=== PATIENT | male | born 1945 | race Caucasian/White ===

== ENCOUNTER 2021-01-25 18:02 | Emergency (ER) | payer MEDICARE, SELFPAY ==
[2021-01-25 18:21] VITALS: BP 194/99; PULSE 84; RESP 18; TEMP 36.7; O2SAT 97; BMI 24.3
[2021-01-25 18:47] LABS: Basophils % 0.4 %; Eosinophils # 0.1 10^3/uL (0.0-0.8); Eosinophils % 0.7 %; Hemoglobin 14.3 g/dL (11.7-16.6); Lymphocytes # 1.3 10^3/uL (0.8-4.8); Lymphocytes % 13.4 %; Mean Corpuscular HGB Conc 33.3 g/dL (30.0-36.0); Mean Corpuscular Hemoglobin 29.1 pg (28.0-34.0); Mean Corpuscular Volume 87.6 fL (80-94); Mean Platelet Volume 9.6 fL (7.4-10.4); Monocytes % 9.8 %; Neutrophils # 7.42 10^3/uL (1.8-7.7); Neutrophils % 75.3 %; Nucleated Red Blood Cells % 0 %; Platelet Count 262 10^3/cmm (130-400); Red Blood Count 4.91 10^6/uL (4.1-5.3); Red Cell Distribution Width 13.7 % (12.1-15.1); White Blood Count 9.9 10^3/uL (4.0-10.0)
[2021-01-25 19:03] LABS: Alanine Aminotransferase 22 U/L (0-41); Albumin Level 4.1 g/dL (3.5-5.2); Alkaline Phosphatase 81 IU/L (40-130); Anion Gap 17.4 (5-19); Aspartate Amino Transferase 24 U/L (0-40); Blood Urea Nitrogen 17 mg/dL (8-23); Calcium 9.2 mg/dL (8.5-10.5); Carbon Dioxide 26 mmol/L (22-29); Chloride 100 mmol/L (98-107); Glucose 161 mg/dL (65-115); Lipase 20 U/L (13-60); Osmolality Calculated 295 mOsm/kg (285-295); Potassium 3.4 mmol/L (3.5-5.1); Sodium 140 mmol/L (136-145); Total Bilirubin 0.4 mg/dL (0.15-1.2); Total Protein 7.1 g/dL (6.6-8.7)
--- NOTE | 2021-01-25 19:04 | W.ED.MALEGU ---
HPI - Male Genitourinary General: Chief complaint: Urogenital-Male Stated complaint: ABD Pain Time Seen by Provider: 01/25/21 19:04 History of Present Illness: HPI Narrative: Patient is a 75-year-old male comes to the ED with abdominal pain and urinary retention. Patient says he has had this problem once before. He woke up this morning and was unable to urinate. Throughout the day his bladder was getting more full and he was starting to get pain in his lower abdomen and over his bladder. Denies any other symptoms such as nausea/vomiting, fever, chills, dysuria or hematuria. Associated symptoms: Deny dysuria, hematuria, nausea or vomiting Review of Systems Const: Denies: fever(s), chills or fatigue Eyes: Denies: change in vision or eye discomfort ENMT: Denies: throat pain, odynophagia, nasal discharge or nasal congestion Card: Denies: chest pain, palpitations, edema, swelling of feet/ankles, dyspnea on exertion or orthopnea Resp: Denies: dyspnea, productive cough or non-productive cough GI: Reports: abdominal pain (Lower abdomen/bladder pain); Denies: nausea, vomiting, diarrhea, constipation or hematochezia : Reports: oliguria (Could not urinate); Denies: flank pain, difficulty urinating, dysuria or hematuria Musc: Denies: neck pain, back pain or extremity swelling Skin/Breast: Denies: rash or new lesions Neuro: Denies: headache(s), numbness in extremities or weakness in extremities Physical Exam Narrative: EXAM NARRATIVE: Upon my initial exam of patient he had already had Burns catheter placed. He appears now in no pain or discomfort and has no abdominal or bladder tenderness. Const: COMMON NORMALS: no acute distress, patient oriented x3, healthy appearing and alert GENERAL APPEARANCE: cooperative and comfortable HENMT: COMMON NORMALS: normocephalic HEAD & SCALP: normocephalic MOUTH: Normal oral and palatal mucosa present THROAT: posterior oropharynx normal and uvula midline Neck/C-Spine: COMMON NORMALS: supple GENERAL: Yes normal visual inspection Resp: COMMON NORMALS: normal respiratory effort, No retractions, No use of accessory muscles and clear to auscultation bilaterally AUSCULTATION: clear to auscultation bilaterally Cardio: COMMON NORMALS: regular rate, regular rhythm, S1 normal heart sound present, S2 normal heart sound present, No gallops present (Cardio), No clicks present (Cardio), No murmurs present (Cardio) and Peripheral pulses 2+ throughout RATE: regular rate RHYTHM: regular rhythm HEART SOUNDS: S1 normal heart sound present and S2 normal heart sound present PERIPHERAL PULSES: Peripheral pulses 2+ throughout GI: COMMON NORMALS: Normal to inspection, nondistended, normoactive bowel sounds present, Soft to palpation, non-tender and no masses PALPATION: Yes Soft to palpation : COMMON NORMALS: Yes no CVA tenderness BLADDER/KIDNEY EXAM: Yes no CVA tenderness Back/Pelvis: COMMON NORMALS: no CVA tenderness Extremity: COMMON NORMALS: normal to inspection Neuro: COMMON NORMALS: patient oriented x3 and moves all extremities SENSORIUM/ORIENTATION: Yes alert Skin: GENERAL SKIN EXAM: dry skin Course ED course: Patient says that once Burns catheter was in place and urine started draining out he felt immediate relief. Since placement of Burns catheter he says he is no more abdominal/bladder pain or discomfort. Vital Signs: Vital signs: Vital Signs Temperature 98.1 F 01/25/21 18:21 Pulse Rate 88 01/25/21 20:17 Respiratory Rate 18 01/25/21 20:17 Blood Pressure 132/87 01/25/21 20:17 Pulse Oximetry 96 01/25/21 20:17 MDM - Male MDM Narrative: Medical decision making narrative: Patient is a 75-year-old male comes to the ED with acute urinary retention. Burns catheter was placed and patient symptoms immediately resolved. Patient says he has had an episode of urinary retention in the past. Denies any other symptoms. Vital stable. Exam benign. CBC and CMP were unremarkable. Urinalysis showed no signs of any infection. Patient was diagnosed with acute urinary retention and discharged home with a Burns catheter. I placed order with case management for patient to be referred to Dr. Wilks for further evaluation. Return to ED precautions given. I told patient that case management will be contacting him in the next several days set up an appoint with Dr. Wilks. He was instructed on how to care for Burns catheter while at home. Patient understood and agree with plan. Lab Data: Attestation: I reviewed the patient's lab results. Labs: Lab Results 07/27/21 07/27/21 07/27/21 Range/Units 18:12 18:43 18:43 WBC 9.9 (4.0-10.0) 10^3/ uL RBC 4.91 (4.1-5.3) 10^6/u L Hgb 14.3 (11.7-16.6) g/dL Hct 43.0 (42.0-52.0) % MCV 87.6 (80-94) fL MCH 29.1 (28.0-34.0) pg MCHC 33.3 (30.0-36.0) g/dL RDW 13.7 (12.1-15.1) % Plt Count 262 (130-400) 10^3/c mm MPV 9.6 (7.4-10.4) fL Neut % (Auto) 75.3 % Lymph % (Auto) 13.4 % Walton % (Auto) 9.8 % Eos % (Auto) 0.7 % Baso % (Auto) 0.4 % Neut # (Auto) 7.42 (1.8-7.7) 10^3/u L Lymph # (Auto) 1.3 (0.8-4.8) 10^3/u L Walton # (Auto) 1.0 H (0.2-0.9) 10^3/u L Eos # (Auto) 0.1 (0.0-0.8) 10^3/u L Baso # (Auto) 0.0 (0.0-0.1) 10^3/u L Nucleated RBC % (a uto) 0 % Nucleated RBCs # 0.0 /100WBC Sodium 140 (136-145) mmol/L Potassium 3.4 L (3.5-5.1) mmol/L Chloride 100 (98-107) mmol/L Carbon Dioxide 26 (22-29) mmol/L Anion Gap 17.4 (5-19) BUN 17 (8-23) mg/dL Creatinine 0.9 (0.7-1.2) mg/dL GFR Calculation Not Reportable Glucose 161 H (65-115) mg/dL Calculated Osmolal ity 295 (285-295) mOsm/k g Calcium 9.2 (8.5-10.5) mg/dL Total Bilirubin 0.4 (0.15-1.2) mg/dL AST 24 (0-40) U/L ALT 22 (0-41) U/L Alkaline Phosphata se 81 (40-130) IU/L Total Protein 7.1 (6.6-8.7) g/dL Albumin 4.1 (3.5-5.2) g/dL Globulin 3.0 (1.3-4.6) g/dL Lipase 20 (13-60) U/L Urine Color Yellow (Yellow) Urine Appearance Clear (CLEAR) Urine pH 5 (5-7) Ur Specific Gravit y 1.010 (1.005-1.030) Urine Protein Neg (Negative) Urine Glucose (UA) Norm (Normal) Urine Ketones Negative (Negative) Urine Blood 2+ H (Negative) Urine Nitrate Negative (Negative) Urine Bilirubin Neg (Negative) Urine Urobilinogen Norm (Negative) mg/dL Ur Leukocyte Bryanna ase Negative (Negative) Urine RBC 0-4 H (0-2) /hpf Urine WBC None (0-5) /hpf Ur Squamous Epith Cells None (0-5) /hpf Amorphous Sediment Not Reportable Urine Bacteria None (NONE) /hpf Discharge Plan Discharge Patient Disposition: Home Clinical Impression: Acute retention of urine Condition: Stable Discharge Orders: Discharge ED (Routine); Ordered 01/25/21 Ordered By: Remington Dill Referrals: Anish Lawson MD [Primary Care Provider] - Discharge Diet: Regular Discharge Activity: Increase activity as tolerated Patient Instructions: Bruns Catheter Care, Urinary Retention in Men (ED) Activity Restrictions/Additional Instructions: Follow-up with medical provider as directed. Case management will be contacting you in the next several days to set up an appointment with Dr. Wilks the urologist. Continue taking all home medications as prescribed. Return to the ER or your medical provider if condition worsens. Please read and understand discharge instructions and asked nurse if you have any questions on Burns catheter care. Thank you for choosing [facility] for your healthcare needs today. Please realize this is an emergency room and that we are providing you with a medical screening exam and this may not be complete and all inclusive of all the testing and or work up that you may need to determine your ailment or severity of your illness. It is very important that you follow up as instructed or that you return to the Emergency Department should you have concerns or if your condition changes or worsens in any way. Coding Level of Care Code ED Community Support Associate for Magdy Fwd Exam Comprehensive
[2021-01-25 19:41] LABS: Add Urine Microscopic? YES; Bilirubin Urine Neg (Negative); Blood Urine 2+ (Negative); Glucose Urine UA Norm (Normal); Ketones Urine Negative (Negative); Leukocyte Esterase Urine Negative (Negative); Nitrate Urine Negative (Negative); Protein Urine Neg (Negative); Urine Appearance Clear (CLEAR); Urine Color Yellow (Yellow); Urobilinogen Urine Norm (Negative); pH Urine 5 (5-7)
[2021-01-25 19:42] LABS: RBC Urine 0-4 /hpf (0-2)
[2021-01-25 20:17] VITALS: BP 132/87; PULSE 88; RESP 18; O2SAT 96
--- NOTE | 2021-01-26 10:11 | DCPLANNER ---
cardroom manager had message to schedule a follow up appointment for patient with Dr. Wilks. cardroom manager called the office of Dr. Wilks spoke with Esau, gave clinic patients information. cardroom manager was told that patients information would be printed and reviewed. Clinic will call patient with appointment information.
--- NOTE | 2021-02-01 13:49 | DCPLANNER ---
Patient has a follow up appointment scheduled for Tuesday, February 06 at 9:[address] Wilks. Clinic will call patient with appointment information.
--- NOTE | 2021-02-18 12:39 | DCPLANNER ---
Patient had an appointment scheduled for 02.11.[address] Wilks - patient did attend appointment.
== END 2021-01-25 20:18 | disposition home or self-care (01) ==
PROVIDERS: Emergency Medicine; Emergency Provider Physician Assistant; PCP Family Medicine
DX: R33.9 Retention of urine, unspecified (principal)
CPT/HCPCS: 51702; 80053; 81001; 83690; 85025; 99283

== ENCOUNTER → 2021-03-24 15:17 | Outpatient (BNVA) | payer MEDICARE, SELFPAY | PROVIDERS: PCP Family Medicine; Visit Provider Nurse Practitioner Family | DX: N40.1 Benign prostatic hyperplasia with lower urinary tract symptoms (principal); R82.81 Pyuria | CPT/HCPCS: 81003; 87077; 87086; 87184 ==

== ENCOUNTER → 2021-04-19 16:06 | Outpatient (BNVA) | payer MEDICARE, SELFPAY | PROVIDERS: PCP Family Medicine; Visit Provider Urology | DX: N40.1 Benign prostatic hyperplasia with lower urinary tract symptoms (principal); R82.71 Bacteriuria | CPT/HCPCS: 81003; 87077; 87086; 87184 ==

== ENCOUNTER → 2021-10-18 14:58 | Outpatient (BNVA) | payer MEDICARE, SELFPAY | PROVIDERS: PCP Family Medicine; Visit Provider Urology | DX: N40.1 Benign prostatic hyperplasia with lower urinary tract symptoms (principal); R33.9 Retention of urine, unspecified | CPT/HCPCS: 81003 ==

== ENCOUNTER → 2022-10-12 13:03 | Outpatient (BNVA) | payer MEDICARE, SELFPAY | PROVIDERS: PCP Family Medicine; Visit Provider Urology | DX: N40.1 Benign prostatic hyperplasia with lower urinary tract symptoms (principal); R33.9 Retention of urine, unspecified | CPT/HCPCS: 51741; 51798; 99213 ==

== ENCOUNTER → 2023-02-27 10:26 | Outpatient (BNVA) | payer MEDICARE, SELFPAY | PROVIDERS: PCP Family Medicine; Referring Provider Family Medicine; Visit Provider Nurse Practitioner Family | DX: D22.5 Melanocytic nevi of trunk; L81.4 Other melanin hyperpigmentation; L57.8 Other skin changes due to chronic exposure to nonionizing radiation; L57.0 Actinic keratosis; Z85.828 Personal history of other malignant neoplasm of skin; L72.0 Epidermal cyst; L30.8 Other specified dermatitis; D36.14 Benign neoplasm of peripheral nerves and autonomic nervous system of thorax; D17.21 Benign lipomatous neoplasm of skin and subcutaneous tissue of right arm | CPT/HCPCS: 17000; 17003; 99203 ==

== ENCOUNTER → 2023-03-07 10:23 | Outpatient (BNVA) | payer MEDICARE, SELFPAY | PROVIDERS: PCP Family Medicine; Visit Provider Dermatology | DX: L08.9 Local infection of the skin and subcutaneous tissue, unspecified (principal) | CPT/HCPCS: 11104; 11105; 99214 ==

== ENCOUNTER → 2023-03-12 14:36 | Outpatient (BNVA) | payer MEDICARE, SELFPAY | PROVIDERS: PCP Family Medicine; Visit Provider Dermatology | DX: B02.7 Disseminated zoster (principal); Z48.02 Encounter for removal of sutures | CPT/HCPCS: 99214 ==

== ENCOUNTER 2023-03-17 10:03 | Inpatient (IN) | payer MEDICARE, SELFPAY ==
[2023-03-17 10:18] VITALS: BP 161/97; PULSE 86; RESP 18; TEMP 36.6; O2SAT 99; BMI 22.1
[2023-03-17 10:39] VITALS: BP 161/97; PULSE 86; RESP 18; O2SAT 99
--- NOTE | 2023-03-17 10:44 | ED_ITS ---
HPI - Skin/Abscess/Foreign Bdy General: Chief complaint: Skin/Abscess/Foreign Body Stated complaint: shingles Time Seen by Provider: 03/17/23 10:20 History of Present Illness: Mr. Ewing is a 77-year-old man that presents to the emergency department with complaints of pain that radiates into the left upper extremity. Onset of the symptoms last night. Patient has a 3-week history of extensive/severe shingles to the left anterior chest, shoulder, trapezius that extends into the left paraspinous muscles of the neck that do not cross midline. Pain radiates from midline neck into the upper extremity and into the hand. The pain in the neck and shoulder are described as cramping and the pain into the forearm and hand is more like deep aching . Patient states when he starts to rotate his head he feels the cramp tightening which pulls his head towards his left shoulder. This causes unsteady gait and dizziness. Patient has been taking his prescribed valacyclovir and cephalexin. He has mupirocin cream that he is using as well. He has been managing his pain at home with Tylenol and ibuprofen Patient denies chest pain, shortness of breath, fevers, chills Associated symptoms: Deny chills, fever(s), nausea or vomiting Review of Systems General: Reports: 10 or more systems reviewed and unremarkable except in HPI and below Const: Denies: fever(s), chills, change in appetite, change in weight, fatigue or malaise Eyes: Denies: change in vision, eye discomfort, eye discharge or eye redness ENMT: Denies: throat pain, enlarged tonsils, odynophagia, hoarseness, ear or mastoid pain, ear discharge, change in hearing, tinnitus, nasal discharge, nasal congestion, post nasal drip or sinus pain Card: Denies: chest pain, palpitations, irregular heart rhythm, edema, dyspnea on exertion, orthopnea or leg pain with exertion Resp: Denies: dyspnea, productive cough, non-productive cough, wheezing, stridor or chest congestion GI: Denies: abdominal pain, nausea, vomiting, dysphagia, diarrhea, constipation, bloating, GI cramping or hematochezia : Denies: flank pain, dysuria, urinary frequency, urinary urgency, urinary hesitancy, oliguria or hematuria Musc: Reports: neck pain, limited range of motion and muscle cramps; Denies: back pain, extremity pain, joint pain, joint swelling, joint redness, joint warmth or muscle weakness Skin/Breast: Reports: rash, erythema, skin tenderness, skin swelling, new lesions and changing lesions; Denies: pruritus or photosensitivity Neuro: Denies: headache(s), numbness in extremities, weakness in extremities, sensory changes, lack of coordination, difficulty walking, frequent falls, dizziness, confusion, Slurred speech present, difficulty communicating thoughts, seizure-like activity or involuntary movements Endo: Denies: polyuria, polydipsia or tired all the time Jose Alfredo/Lymph: Denies: easy bruising or easy bleeding PFSH ED PFSH: Medical History (Updated 03/17/23 @ 12:36 by MARIA Luciano) History of lymphoma Urinary retention Surgical History H/O left inguinal hernia repair H/O lymph node biopsy Family History Mother , AT AGE 86 Alzheimer disease Father , AT AGE 74 Arthritis Social History Smoking and tobacco status: never smoked Alcohol intake: never Marital status: Current occupational status: retired Physical Exam Const: COMMON NORMALS: no acute distress, patient oriented x3 and alert GENERAL APPEARANCE: cooperative ORIENTATION/CONSCIOUSNESS: Yes awake, Yes val ented to person, Yes oriented to place and Yes oriented to time HENMT: COMMON NORMALS: normocephalic and atraumatic HEAD & SCALP: normocephalic and atraumatic FACE & SINUS: normal facial exam MOUTH: Normal oral and palatal mucosa present THROAT: posterior oropharynx normal Eye: COMMON NORMALS: Equal, round and reactive pupils present, EOMs intact bilaterally, conjunctivae normal and no scleral icterus CONJUNCTIVA: Yes conjunctivae normal PUPIL: Yes Equal, round and reactive pupils present Neck/C-Spine: COMMON NORMALS: full ROM GENERAL: Yes normal visual inspection Lymph: LYMPHATIC: no lymphadenopathy noted Chest: COMMONS NORMALS: normal inspection of the chest Breast/axilla inspection: Yes no chest deformity, asymmetry, normal contours, no nodules, masses, tenderness Resp: COMMON NORMALS: normal respiratory effort, No retractions, No use of accessory muscles and clear to auscultation bilaterally EFFORT & INSPECTION: Yes able to speak in complete sentences and Yes symmetric chest movement AUSCULTATION: clear to auscultation bilaterally Cardio: COMMON NORMALS: regular rate, regular rhythm and Peripheral pulses 2+ throughout RATE: regular rate RHYTHM: regular rhythm PERIPHERAL PULSES: Peripheral pulses 2+ throughout GI: COMMON NORMALS: Normal to inspection, nondistended, normoactive bowel sounds present, Soft to palpation, non-tender and No hepatosplenomegaly present INSPECTION: Yes normal to inspection AUSCULTATION: Yes normoactive bowel sounds PALPATION: Yes Soft to palpation and Yes No hepatosplenomegaly present RECTAL EXAM: Yes deferred Extremity: COMMON NORMALS: normal to inspection GENERAL: Yes normal exam except as noted Neuro: COMMON NORMALS: patient oriented x3 SENSORIUM/ORIENTATION: Yes alert, Yes oriented to person, Yes oriented to place and Yes oriented to time CRANIAL NERVES: Yes CN normal except as noted Psych: COMMON NORMALS: mental status grossly normal, Normal thought process present, cooperative, activity/motor behavior normal, denies homicidal ideation and denies suicidal ideation THOUGHT PROCESS: Normal thought process present Skin: COMMON NORMALS: no rashes or lesions noted, no wounds and turgor normal GENERAL SKIN EXAM: no rashes or lesions noted and turgor normal Course Vital Signs: Vital signs: Vital Signs Temperature 97.9 F 03/17/23 10:18 Pulse Rate 75 03/17/23 11:17 Respiratory Rate 18 03/17/23 11:17 Blood Pressure 142/82 03/17/23 11:17 Pulse Oximetry 97 03/17/23 11:17 Oxygen Delivery Me thod Room Air 03/17/23 11:17 MDM - Skin/Abscess/Foreign Bdy Medicial Decision Making Was evaluated in the emergency department today for development of neck pain with radiation into the left upper extremity. Currently being treated for a pretty severe case of shingles Diagnosis includes systemic infection, sepsis, torticollis, cervical instability, foraminal stenosis, central canal stenosis. Patient underwent CBC and CMP initially; laboratory evaluation revealed no leukocytosis, anemias, electrolyte abnormalities, liver or renal dysfunction. Patient also had complaints of radicular type symptoms. I ended up ordering a CT head and cervical spine. CT cervical spine reveals multilevel, multifactorial cervical spine degenerative changes with severe foraminal stenosis, central canal stenosis, spondylolisthesis, and reversal of cervical lordosis. Patient had spoken with his corn picker earlier in the week [place]: They had re commended possible admission if his symptomatology worsened. After initial laboratory evaluation and diagnostics, I did speak with Dr. Gibson at 1145 regarding possible admission. Recommendations for ESR, CRP, procalcitonin and radiographic. Dr. Farley did come down and see the patient and ultimately admitted him. Patient updated. I did review diagnostic imaging with the patient who has clear ly stated he has no interest in following up on the cervical spine changes. I have encouraged him to see his PCP and discuss further. All questions answered Lab Data 03/17/23 10:50 03/17/23 10:50 Radiology Impressions Cervical Spine CT 03/17/23 10:50 IMPRESSION: 1. Multilevel, multifactorial cervical spine degenerative changes with severe right osseous neural foraminal narrowing at C2-C3, severe left osseous neural foraminal narrowing at C5-C6, and moderate to severe left osseous neural foraminal narrowing at C6-C7. Moderate spinal canal narrowing at C5-C6 greater than C6-C7. Additional sites of spinal canal and neural foraminal narrowing detailed above. 2. Reversal of the natural cervical lordosis, 4 mm grade 1 anterolisthesis of C2 on C3 in the setting of hypertrophic facet arthrosis. Head CT 03/17/23 10:50 IMPRESSION: No acute intracranial findings. Laboratory Results WBC 9.86 10^3/uL (3.29-11.43) 03/17/23 10:50 RBC 4.62 10^6/uL (3.85-5.65) 03/17/23 10:50 Hgb 13.40 g/dL (11.27-16.99) 03/17/23 10:50 Hct 39.7 % (37-53) 03/17/23 10:50 MCV 85.9 fl (82-101) 03/17/23 10:50 MCH 29.0 pg (27-33) 03/17/23 10:50 MCHC 33.8 g/dL (30-55) 03/17/23 10:50 RDW 13.9 % (12.1-15.1) 03/17/23 10:50 Plt Count 450 10^3/cmm (157-399) H 03/17/23 10:50 MPV 8.5 fL (7.4-10.4) 03/17/23 10:50 Neut % (Auto) 68.7 % 03/17/23 10:50 Lymph % (Auto) 13.6 % 03/17/23 10:50 [place] % (Auto) 13.1 % 03/17/23 10:50 Eos % (Auto) 1.6 % 03/17/23 10:50 Baso % (Auto) 0.4 % 03/17/23 10:50 Neut # (Auto) 6.77 10^3/uL (1.8-7.7) 03/17/23 10:50 Lymph # (Auto) 1.3 10^3/uL (0.8-4.8) 03/17/23 10:50 Summit # (Auto) 1.3 10^3/uL (0.2-0.9) H 03/17/23 10:50 Eos # (Auto) 0.2 10^3/uL (0.0-0.8) 03/17/23 10:50 Baso # (Auto) 0.0 10^3/uL (0.0-0.1) 03/17/23 10:50 Nucleated RBC % (auto) 0 % 03/17/23 10:50 Nucleated RBCs # 0.0 /100WBC 03/17/23 10:50 Sodium 136 mmol/L (136-145) 03/17/23 10:50 Potassium 3.9 mmol/L (3.5-5.1) 03/17/23 10:50 Chloride 101 mmol/L (98-107) 03/17/23 10:50 Carbon Dioxide 25 mmol/L (22-29) 03/17/23 10:50 Anion Gap 13.9 (5-19) 03/17/23 10:50 BUN 23 mg/dL (8-23) 03/17/23 10:50 Creatinine 0.9 mg/dL (0.7-1.2) 03/17/23 10:50 GFR Calculation Not Reportable 03/17/23 10:50 Glucose 126 mg/dL (65-115) H 03/17/23 10:50 Calculated Osmolality 287 mOsm/kg (285-295) 03/17/23 10:50 Calcium 9.1 mg/dL (8.5-10.5) 03/17/23 10:50 Total Bilirubin 0.3 mg/dL (0.15-1.2) 03/17/23 10:50 AST 18 U/L (0-40) 03/17/23 10:50 ALT 45 U/L (0-41) H 03/17/23 10:50 Alkaline Phosphatase 84 U/L (40-130) 03/17/23 10:50 Total Protein 6.6 g/dL (6.6-8.7) 03/17/23 10:50 Albumin 3.5 g/dL (3.5-5.2) 03/17/23 10:50 Globulin 3.1 g/dL (1.3-4.6) 03/17/23 10:50 Procalcitonin 0.05 ng/mL (0-0.5) 03/17/23 10:50 All radiology interpretation(s) finalized by discharge Discharge Plan Discharge Patient Disposition: Admitted As Inpatient Clinical Impression: Shingles, Cervical spinal stenosis, Spondylolisthesis, 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 Condition: Stable Prescriptions: No Action MSM 1,000 mg capsule 1,000 mg PO BID sildenafil [Viagra] 50 mg tablet 50 mg PO DAILY PRN (Reason: Erectile Dysfunction) Rx Instructions: administer 30 minutes to 4 hours before activity cholecalciferol (vitamin D3) 10 mcg (400 unit) capsule 10 mcg PO DAILY tamsulosin 0.4 mg capsule 0.4 mg PO BID Qty: 180 3RF Valtrex 1 gram Tablet 1,000 mg PO TID Rx Instructions: FOR 7 DAYS (RX FILLED 03/07/23) Keflex 500 mg Capsule 500 mg PO BID Rx Instructions: FOR 7 DAYS (RX FILLED 03/12/23) ibuprofen 200 mg Tablet 200 mg PO Q6H PRN (Reason: Pain) mupirocin 2 % Ointment 1 applic TOPICAL BID Domeboro 952-1,347 mg Powder In Packet 2 packet TOPICAL DAILY glucosamine sulfate 1,000 mg Tablet 1,000 mg PO BID finasteride 5 mg tablet 5 mg PO QAM Referrals: Anish Lawson MD [Primary Care Provider] - Coding Level of Care Code ED Overnight Stocker for g Mirta
--- NOTE | 2023-03-17 10:50 | CTR_ITS ---
PROCEDURE INFORMATION: Exam: CT Head Without Contrast Exam date and time: 03/17/2023 11:25 AM Age: 77 years old Clinical indication: Dizziness TECHNIQUE: Imaging protocol: Computed tomography of the head without contrast. Radiation optimization: All CT scans at this facility use at least one of these dose optimization techniques: automated exposure control; mA and/or kV adjustment per patient size (includes targeted exams where dose is matched to clinical indication); or iterative reconstruction. REPORTING DATA: Count of CT and Cardiac NM exams in prior 12 months: This patient has received 0 known CTs and 0 known cardiac nuclear medicine studies in the 12 months prior to the current study. COMPARISON: No relevant prior studies available. RADIATION DOSE METRICS: Total DLP (mGy-cm): 1489.58 FINDINGS: Brain: Diffuse cerebral atrophy, consistent with patient's age. No hemorrhage. Preserved cavazos-white matter differentiation. Bilateral basal ganglia hypodensities likely represent chronic lacunar infarcts or prominent perivascular spaces. Mild patchy cerebral white matter hypoattenuation likely on the basis of chronic microvascular ischemic change. No mass effect. Intracranial vascular calcifications. Cerebral ventricles: Ventricles are in proportion to the degree of atrophy. Paranasal sinuses: Visualized sinuses are unremarkable. No fluid levels. Mastoid air cells: Visualized mastoid air cells are well aerated. Bones/joints: Unremarkable. No acute fracture. Soft tissues: Unremarkable. CT/CT head wo con* [id number] IMPRESSION: No acute intracranial findings.
--- NOTE | 2023-03-17 10:50 | CTR_ITS ---
PROCEDURE INFORMATION: Exam: CT Cervical Spine Without Contrast Exam date and time: 03/17/2023 11:25 AM Age: 77 years old Clinical indication: Neck pain; Additional info: Pain, radiculopathy TECHNIQUE: Imaging protocol: Computed tomography of the cervical spine without contrast. Radiation optimization: All CT scans at this facility use at least one of these dose optimization techniques: automated exposure control; mA and/or kV adjustment per patient size (includes targeted exams where dose is matched to clinical indication); or iterative reconstruction. REPORTING DATA: Count of CT and Cardiac NM exams in prior 12 months: This patient has received 0 known CTs and 0 known cardiac nuclear medicine studies in the 12 months prior to the current study. COMPARISON: No relevant prior studies available. RADIATION DOSE METRICS: Total DLP (mGy-cm): 567.8 FINDINGS: Bones/joints: No acute fracture. Moderate reversal of the natural cervical lordosis. 4 mm grade 1 anterolisthesis of C2 on C3 in the setting of [id number]-[id number]-left hypertrophic facet arthrosis. Additional less pronounced facet arthrosis throughout the cervical spine. Trace retrolisthesis of C4 on C5. Multilevel, multifactorial cervical spine degenerative changes with intervertebral disc space narrowing, osteophytosis, and uncovertebral spurring greatest at C4-C5 and C5-C6. Severe right osseous neural foraminal narrowing at C2-C3. Moderate right osseous neural foraminal narrowing at C4-C5. Mild spinal canal narrowing at this level. Severe left and moderate right osseous neural foraminal narrowing at C5-C6. Moderate spinal canal narrowing at this level. Moderate to severe left and [id number] right neural foraminal narrowing at C6-C7 with moderate left spinal canal narrowing. Lungs: Lung apices show mild biapical pleural-parenchymal scarring but otherwise clear. Vasculature: Mild systemic atherosclerotic calcification. Soft tissues: Unremarkable. CT/CT cervical spin wo con* [id number] IMPRESSION: 1. Multilevel, multifactorial cervical spine degenerative changes with severe right osseous neural foraminal narrowing at C2-C3, severe left osseous neural foraminal narrowing at C5-C6, and moderate to severe left osseous neural foraminal narrowing at C6-C7. Moderate spinal canal narrowing at C5-C6 greater than C6-C7. Additional sites of spinal canal and neural foraminal narrowing detailed above. 2. Reversal of the natural cervical lordosis, 4 mm grade 1 anterolisthesis of C2 on C3 in the setting of hypertrophic facet arthrosis.
[2023-03-17 11:00] LABS: Basophils % 0.4 %; Eosinophils # 0.2 10^3/uL (0.0-0.8); Eosinophils % 1.6 %; Hematocrit 39.7 % (37-53); Lymphocytes # 1.3 10^3/uL (0.8-4.8); Lymphocytes % 13.6 %; Mean Corpuscular HGB Conc 33.8 g/dL (30-55); Mean Corpuscular Volume 85.9 fl (82-101); Mean Platelet Volume 8.5 fL (7.4-10.4); Monocytes # 1.3 10^3/uL (0.2-0.9); Monocytes % 13.1 %; Neutrophils # 6.77 10^3/uL (1.8-7.7); Neutrophils % 68.7 %; Nucleated Red Blood Cells % 0 %; Platelet Count 450 10^3/cmm (157-399); Red Blood Count 4.62 10^6/uL (3.85-5.65); Red Cell Distribution Width 13.9 % (12.1-15.1); White Blood Count 9.86 10^3/uL (3.29-11.43)
[2023-03-17] MEDS: ketorolac 30 mg/mL INJ 15 MG IVP (11:16)
[2023-03-17 11:17] VITALS: BP 142/82; PULSE 75; RESP 18; O2SAT 97
--- NOTE | 2023-03-17 11:19 | PC.PHAR ---
PT AND PTS VERIFIED PTS MEDICATIONS-PT HAD A TITRATING DOSE OF PREDNISONE PT STATES ONLY TOOK ONE DOSE AND REMEMBERED HE COULDNT TAKE SO HE DIDNT TAKE ANYMORE-PT STATES HE FINISHED HIS VALTREX 03/16/23-
[2023-03-17 11:39] LABS: Alanine Aminotransferase 45 U/L (0-41); Albumin Level 3.5 g/dL (3.5-5.2); Alkaline Phosphatase 84 U/L (40-130); Anion Gap 13.9 (5-19); Aspartate Amino Transferase 18 U/L (0-40); Blood Urea Nitrogen 23 mg/dL (8-23); Calcium 9.1 mg/dL (8.5-10.5); Carbon Dioxide 25 mmol/L (22-29); Chloride 101 mmol/L (98-107); Globulin 3.1 g/dL (1.3-4.6); Glucose 126 mg/dL (65-115); Osmolality Calculated 287 mOsm/kg (285-295); Potassium 3.9 mmol/L (3.5-5.1); Sodium 136 mmol/L (136-145); Total Bilirubin 0.3 mg/dL (0.15-1.2); Total Protein 6.6 g/dL (6.6-8.7)
[2023-03-17 12:21] LABS: C Reactive Protein 21.6 mg/L (0.0-4.9)
[2023-03-17 12:26] LABS: Procalcitonin 0.05 ng/mL (0-0.5)
--- NOTE | 2023-03-17 12:26 | P.HP_ITS ---
Providers/Chief Complaint Primary Care Provider: Anish Lawson MD Chief Complaint: shingles History of Present Illness Inocencio Ewing is a 77 year old male with a past medical history of lymphoma status post chemotherapy, history of immunocompromise state, who presents to [facility] due to worsening shingle rash with surrounding erythema, with radicular neck pain radiating down his arm. Patient tells me that he does not have any significant medical history, does have BPH, he had chickenpox as a kid, did not receive chickenpox vaccination, did not receive shingles vaccination. He tells me on 02 March he started developing a rash around his left neck a vesicular rash, that started erupting and bursting fluid, there was started to scale over and crusted over, he saw dermatology and was diagnosed with shingles, placed on valacyclovir given her antibiotic treatment, placed on an ointment. Since that he tells me that the area involved of his left neck has significantly spread to involve the back of the left shoulder, now he is also developing satellite lesions throughout his body throughout his extremities, no visual deficits, does have pain in his ear, no pain in his mouth, no visual involvement, no headache, no blurry vision, but does report a pain sensation that occurs in his neck that radiates down his left arm, almost like a spasm, no neck pain, no neck stiffness, no ascending weakness, no fevers, no chills, no poor appetite Review of Systems Const: Denies: fever(s) Eyes: Denies: change in vision ENMT: Denies: throat pain Card: Denies: chest pain Resp: Denies: dyspnea GI: Denies: abdominal pain : Denies: flank pain Musc: Reports: neck pain Skin/Breast: Reports: rash and pruritus Neuro: Denies: headache(s), numbness in extremities, weakness in extremities, lack of coordination, difficulty walking, dizziness, vertigo, confusion, Slurred speech present, difficulty communicating thoughts, seizure-like activity or involuntary movements Endo: Denies: polyuria Medications/Allergies Home Medications Medication Instructions Recorded Confirmed Last Taken Type methylsulfonylmethane 1,000 mg 1,000 mg PO BID 02/11/21 03/17/23 Unknown History capsule (MSM) sildenafil 50 mg tablet (Viagra) 50 mg PO DAILY PRN Erectile 02/11/21 03/17/23 Unknown History Dysfunction cholecalciferol (vitamin D3) 10 10 mcg PO DAILY 10/18/21 03/17/23 Unknown History mcg (400 unit) capsule tamsulosin 0.4 mg capsule 0.4 mg PO BID #180 caps 10/12/22 03/17/23 03/17/23 Rx calcium acetate 952 mg-aluminum 2 packet topical DAILY 03/17/23 03/17/23 Unknown History sulfate 1,347 mg topical powder packet ([place]) cephalexin 500 mg capsule 500 mg PO BID 03/17/23 03/17/23 Unknown History finasteride 5 mg tablet 5 mg PO QAM 03/17/23 03/17/23 03/17/23 History glucosamine sulfate 1,000 mg tablet 1,000 mg PO BID 03/17/23 03/17/23 Unknown History ibuprofen 200 mg tablet 200 mg PO Q6H PRN Pain 03/17/23 03/17/23 03/17/23 Hist ory mupirocin 2 % topical ointment 1 applic topical BID 03/17/23 03/17/23 Unknown History valacyclovir 1 gram tablet 1,000 mg PO TID 03/17/23 03/17/23 03/16/23 History (Valtrex) FINISHED 03/16/23 Allergies Allergy/AdvReac Type Severity Reaction Status Date / Time morphine Allergy ALGY-Anaphy Verified 03/17/23 10:21 laxis prednisone Allergy ADR-Halluci Verified 03/17/23 11:18 nating PFSH Acute PFSH: Medical History (Updated 03/17/23 @ 12:32 by Eusebio Shook MD) History of lymphoma Urinary retention Surgical History H/O left inguinal hernia repair H/O lymph node biopsy Family History Mother , AT AGE 86 Alzheimer disease Father , AT AGE 74 Arthritis Social History Smoking and tobacco status: never smoked Alcohol intake: never Marital status: Current occupational status: retired Vitals/I&O/Wt Last Vital Signs Temp 97.9 F 03/17/23 10:18 Pulse 75 03/17/23 11:17 Resp 18 03/17/23 11:17 BP 142/82 03/17/23 11:17 Pulse Ox 97 03/17/23 11:17 O2 Del Method Room Air 03/17/23 11:17 Weight last 48 hrs Weight 63.957 kg Physical Exam Const: COMMON NORMALS: no acute distress and patient oriented x3 HENMT: COMMON NORMALS: normocephalic HEAD & SCALP: normocephalic Neck/C-Spine: COMMON NORMALS: no JVD Resp: COMMON NORMALS: normal respiratory effort, No retractions, No use of accessory muscles and clear to auscultation bilaterally AUSCULTATION: clear to auscultation bilaterally Cardio: COMMON NORMALS: no JVD, regular rate, regular rhythm, S1 normal heart sound present and S2 normal heart sound present RATE: regular rate RHYTHM: regular rhythm HEART SOUNDS: S1 normal heart sound present and S2 normal heart sound present GI: COMMON NORMALS: Normal to inspection, nondistended, normoactive bowel sounds present, Soft to palpation, non-tender, No hepatosplenomegaly present and no masses Extremity: COMMON NORMALS: no pedal edema Neuro: COMMON NORMALS: patient oriented x3, CN's II-XII intact bilaterally, moves all extremities and no focal motor deficits Psych: COMMON NORMALS: mental status grossly normal Skin: NARRATIVE SKIN EXAM: Shingles rash left neck left shoulder left back -Multiple vesicular regions, actively draining -Multiple lesions crusted over -Surrounding erythema -Area involved irregular, measuring roughly 20 x 20 cm -Has multiple satellite lesions, throughout his abdomen both upper extremities, both legs, irregular, vesicular lesions Data 03/17/23 10:50 03/17/23 10:50 A&P Assessment and plan (1) Disseminated herpes zoster: (2) Cellulitis: (3) [place]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: (4) Myelopathy: Plan - Immunocompromise state with history of lymphoma status postchemotherapy -Now with disseminated shingles with concerns with surrounding cellulitis, [place] Gimenez syndrome with radicular symptoms, myelopathy Plan -Admit to MedSurg, airborne precautions, contact precautions -Start IV acyclovir 1 g/kg every 8 hours -Start vancomycin, Rocephin for surrounding cellulitis -Flexeril for muscle spasms -Gabapentin 100 mg twice daily for neuropathic pain -Toradol for pain -Cervical spine MRI, no significant evidence of spinal cord involvement -We will monitor closely -DNR/DNI -Lovenox for DVT prophylaxis Attestations Medical Necessity Statement*: Patient requires hospitalization, inpatient, greater than 2 midnights, for disseminated shingles, with surrounding cellulitis, with [place] Gimenez syndrome, concerns for myelopathy Diagnoses Disseminated herpes zoster B02.7 Cellulitis L03.90 [place]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
[2023-03-17 12:43] LABS: Erythrocyte Sedimentation Rate 22 mm/hr (0-10)
[2023-03-17 12:52] VITALS: BP 147/81; PULSE 81; RESP 18; O2SAT 100
[2023-03-17] MEDS: enoxaparin 40 mg/0.4 mL Syringe SUBCUT (15:07)
[2023-03-17] MEDS: cefTRIAXone 1,000 MG in sodium chloride 0.9% (plus) 50 ML 100 MG IV (15:08)
[2023-03-17] MEDS: sodium chloride 0.9% 1,000 ML 50 ML IV (15:08)
[2023-03-17 15:31] LABS: Chol HDL Ratio 4.55 mg/dL (1.0-5.00); Cholesterol 141 mg/dL (0-200); HDL Cholesterol 31 mg/dL (60-100); LDL Cholesterol Calculated 89 mg/dL (50-129); LDL HDL Ratio 2.87 RATIO (0.00-3.22); Thyroid Stimulating Hormone 3.27 uIU/mL (0.27-4.20); Triglycerides 106 mg/dL (0-150)
[2023-03-17 15:37] LABS: Estmated Average Glucose 120; Hemoglobin A1C 5.8 % (4.0-6.0)
[2023-03-17 15:44] VITALS: BP 168/93; PULSE 79; RESP 16; TEMP 36.6; O2SAT 96
[2023-03-17] MEDS: vancomycin 750 MG in sodium chloride 0.9% 250 ML 250 MG IV (17:01)
[2023-03-17] MEDS: gabapentin 100 mg Capsule PO (17:02)
[2023-03-17] MEDS: tamsulosin 0.4 mg Capsule PO (17:02)
[2023-03-17 19:56] VITALS: BP 142/80; PULSE 82; RESP 16; TEMP 37.3; O2SAT 95
[2023-03-18] VITALS (7 sets, daily range): BP systolic 155–165; BP diastolic 86–92; PULSE 78–96; RESP 16–18; TEMP 36.1–36.9; O2SAT 95–97
[2023-03-18] MEDS: vancomycin 750 MG in sodium chloride 0.9% 250 ML 250 MG IV (03:15)
[2023-03-18 04:07] LABS: Basophils % 0.4 %; Eosinophils # 0.2 10^3/uL (0.0-0.8); Eosinophils % 1.5 %; Hematocrit 38.4 % (37-53); Lymphocytes # 1.4 10^3/uL (0.8-4.8); Mean Corpuscular HGB Conc 33.3 g/dL (30-55); Mean Corpuscular Volume 86.9 fl (82-101); Mean Platelet Volume 8.6 fL (7.4-10.4); Monocytes # 1.3 10^3/uL (0.2-0.9); Neutrophils # 7.52 10^3/uL (1.8-7.7); Neutrophils % 71.1 %; Nucleated Red Blood Cells % 0 %; Platelet Count 448 10^3/cmm (157-399); Red Blood Count 4.42 10^6/uL (3.85-5.65); Red Cell Distribution Width 13.8 % (12.1-15.1); White Blood Count 10.58 10^3/uL (3.29-11.43)
[2023-03-18 04:38] LABS: Alanine Aminotransferase 36 U/L (0-41); Albumin Level 2.9 g/dL (3.5-5.2); Alkaline Phosphatase 72 U/L (40-130); Anion Gap 14.2 (5-19); Aspartate Amino Transferase 17 U/L (0-40); Blood Urea Nitrogen 21 mg/dL (8-23); Calcium 8.3 mg/dL (8.5-10.5); Carbon Dioxide 25 mmol/L (22-29); Chloride 101 mmol/L (98-107); Globulin 3.2 g/dL (1.3-4.6); Glucose 102 mg/dL (65-115); Osmolality Calculated 285 mOsm/kg (285-295); Potassium 4.2 mmol/L (3.5-5.1); Sodium 136 mmol/L (136-145); Total Bilirubin 0.4 mg/dL (0.15-1.2); Total Protein 6.1 g/dL (6.6-8.7)
[2023-03-18] MEDS: finasteride 5 mg Tablet PO (05:08)
[2023-03-18] MEDS: tamsulosin 0.4 mg Capsule PO (08:58)
[2023-03-18] MEDS: gabapentin 100 mg Capsule PO (08:58)
--- NOTE | 2023-03-18 11:09 | P.DS_ITS ---
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 Patient tells me that he does not have any significant medical history, does have BPH, he had chickenpox as a kid, did not receive chickenpox vaccination, did not receive shingles vaccination.? He tells me on 02 March he started developing a rash around his left neck a vesicular rash, that started erupting and bursting fluid, there was started to scale over and crusted over, he saw dermatology and was diagnosed with shingles, placed on valacyclovir given her antibiotic treatment, placed on an ointment.? Since that he tells me that the area involved of his left neck has significantly spread to involve the back of the left shoulder, now he is also developing satellite lesions throughout his body throughout his extremities, no visual deficits, does have pain in his ear, no pain in his mouth, no visual involvement, no headache, no blurry vision, but does report a pain sensation that occurs in his neck that radiates down his left arm, almost like a spasm, no neck pain, no neck stiffness, no ascending weakness, no fevers, no chills, no poor appetite This is a 77-year-old male who presents [facility], has immunocompromise state with history of lymphoma status postchemotherapy, presented to [facility] for disseminated shingles, with concerns for surrounding cellulitis, Daniel Gimenez syndrome, possible myelopathy. Patient received IV acyclovir, broad-spectrum antibiotic therapy, gabapentin, Toradol, Flexeril, overall clinically monitored. Patient's muscle spasms resolved, no headache, blurry vision, neck pain, neck stiffness afebrile, no paresthesias, no eye involvement, no tinnitus, no paresis, no loss of sensation. Overall area of shingles has remained the same, area of cellulitis has improved. My concerns was for disseminated shingles, and have recommended for patient to remain as inpatient for at least 72 hours of treatment with IV acyclovir. There is no significant evidence of clinically of encephalitis or transverse myelitis or spinal cord involvement, but I am very worried about his risk of developing it given his disseminated shingles. Patient was adamant about going home, I had a discussion about the morbidity and mortality associated with disseminated shingles, risks including but not limited to [employer] involvement, spinal cord involvement. His is at bedside, he voiced understanding, all questions answered, however he declined further inpatient monitoring, and IV acyclovir, adamant about discharging home. I going to discharge him on 10 days acyclovir, keep area clean and dry, doxycycline for antibiotic coverage, gabapentin for postherpetic neuralgia, Flexeril for muscle spasms. Patient was advised that if you develop systemic symptoms, headache, blurry vision, neck pain, neck stiffness, paresthesias, paralysis, weakness that these are life-threatening complications of Mick shingles that he immediately should go to the emergency room. - Keep area covered, keep area clean and dry -Please avoid public areas, wear a facemask, hand wash -Please avoid contact with individuals, immunocompromise individuals, any person under the age of 1, or individuals that are not vaccinated against chickenpox Please see primary care provider in 1 month for discussion of shingles vaccination Please use acyclovir for 10 days Use doxycycline for 7 days Use gabapentin 100 mg twice daily for postherpetic neuralgia, do not drive operate machinery or drink while taking medication Use Flexeril for muscle spasms, do not drive or operate machinery or drink while taking medication Hydrate well, drink plenty of electrolyte balanced fluids See Dr. Andres If you develop headache, blurry vision, neck pain, neck stiffness, muscle spasms, confusion, fevers this is life-threatening please go to the emergency room See ENT for [place] Gimenez syndrome Physical Exam Const: COMMON NORMALS: no acute distress and patient oriented x3 HENMT: OTHER: Shingles rash, is present in the left external auditory canal, i it does spare the left tympanic membrane, but this needs to be monitored he needs to follow-up with ENT Eye: OTHER: Shingles does not involve the eyelids, does not involve sclera, Resp: COMMON NORMALS: normal respiratory effort, No retractions, No use of accessory muscles and clear to auscultation bilaterally AUSCULTATION: clear to auscultation bilaterally Cardio: COMMON NORMALS: regular rate, regular rhythm, S1 normal heart sound present and S2 normal heart sound present RATE: regular rate RHYTHM: regular rhythm HEART SOUNDS: S1 normal heart sound present and S2 normal heart sound present GI: COMMON NORMALS: Normal to inspection, nondistended, normoactive bowel sounds present and non-tender Extremity: COMMON NORMALS: no pedal edema Neuro: COMMON NORMALS: patient oriented x3 Psych: COMMON NORMALS: mental status grossly normal Skin: NARRATIVE SKIN EXAM: Shingles rash, left neck, left arm, in various stages including vesicular lesions, lesions are crusted over, some with active drainage, extending to the left back, left arm Also has multiple satellite lesions throughout his body vesicular lesions Discharge Data Studies Completed and Pending Completed Studies During Hospitalization Category Date Time Status CT cervical spin wo con* [id number] Stat Cat Scan 03/17/23 10:[address] head wo con* [id number] Stat Cat Scan 03/17/23 10:50 Completed Pending at discharge Category Date Time Status Blood Culture Stat Lab 03/17/23 12:35 Results Herpes Simplex 1&2 IgG AB Routine Lab 03/17/23 10:50 Received MRSA [Methicillin Resistant S.aureu] Routine Lab 03/17/23 10:50 Received Vancomycin Trough Timed Lab 03/19/23 03:00 Ordered Varicella Zoster IGG&IGM Stat Lab 03/17/23 10:50 Received Wound Culture and Gram Stain Stat Lab 03/17/23 13:01 Results Radiology Impressions Cervical Spine CT 03/17/23 10:50 IMPRESSION: 1. Multilevel, multifactorial cervical spine degenerative changes with severe right osseous neural foraminal narrowing at C2-C3, severe left osseous neural foraminal narrowing at C5-C6, and moderate to severe left osseous neural foraminal narrowing at C6-C7. Moderate spinal canal narrowing at C5-C6 greater than C6-C7. Additional sites of spinal canal and neural foraminal narrowing detailed above. 2. Reversal of the natural cervical lordosis, 4 mm grade 1 anterolisthesis of C2 on C3 in the setting of hypertrophic facet arthrosis. Head CT 03/17/23 10:50 IMPRESSION: No acute intracranial findings. Laboratory Results WBC 10.58 10^3/uL (3.29-11.43) 03/18/23 02:52 RBC 4.42 10^6/uL (3.85-5.65) 03/18/23 02:52 Hgb 12.80 g/dL (11.27-16.99) 03/18/23 02:52 Hct 38.4 % (37-53) 03/18/23 02:52 MCV 86.9 fl (82-101) 03/18/23 02:52 MCH 29.0 pg (27-33) 03/18/23 02:52 MCHC 33.3 g/dL (30-55) 03/18/23 02:52 RDW 13.8 % (12.1-15.1) 03/18/23 02:52 Plt Count 448 10^3/cmm (157-399) H 03/18/23 02:52 MPV 8.6 fL (7.4-10.4) 03/18/23 02:52 Neut % (Auto) 71.1 % 03/18/23 02:52 Lymph % (Auto) 13.0 % 03/18/23 02:52 [place] % (Auto) 12.0 % 03/18/23 02:52 Eos % (Auto) 1.5 % 03/18/23 02:52 Baso % (Auto) 0.4 % 03/18/23 02:52 Neut # (Auto) 7.52 10^3/uL (1.8-7.7) 03/18/23 02:52 Lymph # (Auto) 1.4 10^3/uL (0.8-4.8) 03/18/23 02:52 [place] # (Auto) 1.3 10^3/uL (0.2-0.9) H 03/18/23 02:52 Eos # (Auto) 0.2 10^3/uL (0.0-0.8) 03/18/23 02:52 Baso # (Auto) 0.0 10^3/uL (0.0-0.1) 03/18/23 02:52 Nucleated RBC % (auto) 0 % 03/18/23 02:52 Nucleated RBCs # 0.0 /100WBC 03/18/23 02:52 ESR 22 mm/hr (0-10) H 03/17/23 10:50 Sodium 136 mmol/L (136-145) 03/18/23 02:52 Potassium 4.2 mmol/L (3.5-5.1) 03/18/23 02:52 Chloride 101 mmol/L (98-107) 03/18/23 02:52 Carbon Dioxide 25 mmol/L (22-29) 03/18/23 02:52 Anion Gap 14.2 (5-19) 03/18/23 02:52 BUN 21 mg/dL (8-23) 03/18/23 02:52 Creatinine 0.9 mg/dL (0.7-1.2) 03/18/23 02:52 GFR Calculation Not Reportable 03/18/23 02:52 Glucose 102 mg/dL (65-115) 03/18/23 02:52 Estimat Average Glucose 120 03/17/23 10:50 Hemoglobin A1c 5.8 % (4.0-6.0) 03/17/23 10:50 Calculated Osmolality 285 mOsm/kg (285-295) 03/18/23 02:52 Calcium 8.3 mg/dL (8.5-10.5) L 03/18/23 02:52 Total Bilirubin 0.4 mg/dL (0.15-1.2) 03/18/23 02:52 AST 17 U/L (0-40) 03/18/23 02:52 ALT 36 U/L (0-41) 03/18/23 02:52 Alkaline Phosphatase 72 U/L (40-130) 03/18/23 02:52 C-Reactive Protein 21.6 mg/L (0.0-4.9) H 03/17/23 10:50 Total Protein 6.1 g/dL (6.6-8.7) L 03/18/23 02:52 Albumin 2.9 g/dL (3.5-5.2) L 03/18/23 02:52 Globulin 3.2 g/dL (1.3-4.6) 03/18/23 02:52 Triglycerides 106 mg/dL (0-150) 03/17/23 10:50 Cholesterol 141 mg/dL (0-200) 03/17/23 10:50 LDL Cholesterol, Calc 89 mg/dL (50-129) 03/17/23 10:50 HDL Cholesterol 31 mg/dL (60-100) L 03/17/23 10:50 LDL/HDL Ratio 2.87 RATIO (0.00-3.22) 03/17/23 10:50 Cholesterol/HDL Ratio 4.55 mg/dL (1.0-5.00) 03/17/23 10:50 Procalcitonin 0.05 ng/mL (0-0.5) 03/17/23 10:50 TSH 3.27 uIU/mL (0.27-4.20) 03/17/23 10:50 Vitals Last Vital Signs Temp 97.6 F 03/18/23 08:57 Pulse 96 03/18/23 08:57 Resp 18 03/18/23 08:57 BP 160/91 03/18/23 08:57 Pulse Ox 96 03/18/23 08:57 O2 Del Method Room Air 03/18/23 08:57 Discharge Plan Discharge Patient Disposition: Home Condition: Stable Prescriptions: New acyclovir 800 mg tablet 800 mg PO 5XD 10 Days Qty: 50 0RF Rx Instructions: space evenly during waking hours gabapentin 100 mg Capsule 100 mg PO BID 30 Days Qty: 60 0RF cyclobenzaprine 10 mg Tablet 5 mg PO TID PRN (Reason: Muscle Spasms) 15 Days Qty: 23 0RF doxycycline hyclate 100 mg tablet 100 mg PO BID 7 Days Qty: 14 0RF Continued MSM 1,000 mg capsule 1,000 mg PO BID sildenafil [Viagra] 50 mg tablet 50 mg PO DAILY PRN (Reason: Erectile Dysfunction) Rx Instructions: administer 30 minutes to 4 hours before activity cholecalciferol (vitamin D3) 10 mcg (400 unit) capsule 10 mcg PO DAILY tamsulosin 0.4 mg capsule 0.4 mg PO BID Qty: 180 3RF ibuprofen 200 mg Tablet 200 mg PO Q6H PRN (Reason: Pain) mupirocin 2 % Ointment 1 applic TOPICAL BID [place] 952-1,347 mg Powder In Packet 2 packet TOPICAL DAILY glucosamine sulfate 1,000 mg Tablet 1,000 mg PO BID finasteride 5 mg tablet 5 mg PO QAM Discontinued Valtrex 1 gram Tablet 1,000 mg PO TID Rx Instructions: FOR 7 DAYS (RX FILLED 03/07/23) Keflex 500 mg Capsule 500 mg PO BID Rx Instructions: FOR 7 DAYS (RX FILLED 03/12/23) Discharge Orders: Discharge Order (Routine); Ordered 03/18/23 Ordered By: Eusebio Shook Referrals: Amadeo Holden MD [Physician] - 1 month (daniel gimenez syndrome.) Anish Lawson MD [Primary Care Provider] - (Please call Sunday to schedule an appointment with Dr. Lawson.) Discharge Diet: Cardiac Discharge Activity: Resume usual activity Patient Instructions: Shingles (DC), Opioid Safety Activity Restrictions/Additional Instructions: - Keep area covered, keep area clean and dry -Please avoid public areas, wear a facemask, hand wash -Please avoid contact with individuals, immunocompromise individuals, any person under the age of 1, or individuals that are not vaccinated against chickenpox Please see primary care provider in 1 month for discussion of shingles vaccination Please use acyclovir for 10 days Use doxycycline for 7 days Use gabapentin 100 mg twice daily for postherpetic neuralgia, do not drive operate machinery or drink while taking medication Use Flexeril for muscle spasms, do not drive or operate machinery or drink while taking medication Hydrate well, drink plenty of electrolyte balanced fluids See Dr. 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
[2023-03-20 13:00] LABS: HSV 2 IGG Type Specific AB <0.90 index
== END 2023-03-18 12:16 | disposition home or self-care (01) | DRG 866 ==
LOC: ER 12:36 → MEDSURG 15:38
PROVIDERS: Admitting Provider Family Medicine; Emergency Provider Nurse Practitioner; PCP Family Medicine; Visit Provider Family Medicine
DX: B02.7 Disseminated zoster (principal); D84.9 Immunodeficiency, unspecified; L03.221 Cellulitis of neck; B02.21 Postherpetic geniculate ganglionitis; Z85.72 Personal history of non-Hodgkin lymphomas; Z92.21 Personal history of antineoplastic chemotherapy
CPT/HCPCS: 36415; 70450; 72125; 80053; 80061; 83036; 84145; 84443; 85025; 85651; 86140; 86695; 86696; 86787; 87040; 87070; 87075; 87077; 87186; 87205; 87641; 96372; 96374; 99285; J0133; J0696; J1650; J1885; J3370; J7030; J7050

== ENCOUNTER 2023-03-24 12:00 | Emergency (ER) | payer MEDICARE, SELFPAY ==
[2023-03-24 12:14] VITALS: BP 131/87; PULSE 100; RESP 17; TEMP 36.6; O2SAT 96; BMI 21.9
--- NOTE | 2023-03-24 12:22 | W.ED.SKABFB ---
HPI - Skin/Abscess/Foreign Bdy General: Chief complaint: Skin/Abscess/Foreign Body Stated complaint: was here a week ago back for burning pain Time Seen by Provider: 03/24/23 12:19 Source: patient and family Mode of arrival: ambulatory Limitations: no limitations History of Present Illness: Patient reports to the emergency department today for evaluation treatment of continued left upper back and left-sided chest pain from shingles chart review shows patient was seen and evaluated several weeks ago for an erythematous rash that broke out on his left upper chest, left upper back, and left side of his neck. Patient was actually seen by dermatology and they did a biopsy before being able to diagnose shingles given its abnormal presentation. Shingles progressed and got worse-he presented here to the emergency department and was subsequently admitted for IV antiviral medication. Patient was discharged just 5-week ago with continued treatment of acyclovir, doxycycline, gabapentin, and Ultram. Patient also has a pending ENT referral for his Marion Gimenez. Patient states for the most part his pain is controlled but he does get breakthrough pain and was wondering if there was something else he could do. He indicates his rash seems to be continuing to improve and has no other concerns today. Review of Systems General: Reports: 10 or more systems reviewed and unremarkable except in HPI and below PFSH ED PFSH: Medical History History of lymphoma Urinary retention Surgical History H/O left inguinal hernia repair H/O lymph node biopsy Family History Mother , AT AGE 86 Alzheimer disease Father , AT AGE 74 Arthritis Social History Smoking and tobacco status: never smoked Alcohol intake: never Marital status: Current occupational status: retired Physical Exam Const: COMMON NORMALS: no acute distress, average body habitus and patient oriented x3 HENMT: COMMON NORMALS: normocephalic, atraumatic, hearing grossly normal bilaterally, Normal external nose present and moist oral mucous membranes HEAD & SCALP: normocephalic and atraumatic NOSE: Normal external nose present Eye: COMMON NORMALS: Equal, round and reactive pupils present, EOMs intact bilaterally and conjunctivae normal CONJUNCTIVA: Yes conjunctivae normal PUPIL: Yes Equal, round and reactive pupils present Neck/C-Spine: COMMON NORMALS: no JVD Lymph: LYMPHATIC: no lymphadenopathy noted Resp: COMMON NORMALS: normal respiratory effort, No retractions and No use of accessory muscles Cardio: COMMON NORMALS: no JVD, regular rate and regular rhythm RATE: regular rate RHYTHM: regular rhythm GI: COMMON NORMALS: Normal to inspection, nondistended, normoactive bowel sounds present : COMMON NORMALS: Yes no CVA tenderness BLADDER/KIDNEY EXAM: Yes no CVA tenderness Back/Pelvis: COMMON NORMALS: no CVA tenderness and thoraco-lumbar ROM normal Extremity: COMMON NORMALS: normal to inspection, full ROM and capillary refill normal Neuro: COMMON NORMALS: patient oriented x3 Psych: COMMON NORMALS: mental status grossly normal, Normal thought process present, cooperative, normal affect and activity/motor behavior normal THOUGHT PROCESS: Normal thought process present Skin: NARRATIVE SKIN EXAM: Patient has severe residual crusting from large, multiple dermatome breakout of shingles affecting the left upper chest, left upper back, left superior shoulder, and left side of neck. Patient has significant ulceration of skin, black eschar crusting and flaking with surrounding erythema present in this area. Course Vital Signs: Vital signs: Vital Signs Temperature 97.9 F 03/24/23 12:14 Pulse Rate 100 03/24/23 12:14 Respiratory Rate 17 03/24/23 12:14 Blood Pressure 131/87 03/24/23 12:14 Pulse Oximetry 96 03/24/23 12:14 Oxygen Delivery Me thod Room Air 03/24/23 12:14 MDM - Skin/Abscess/Foreign Bdy Medicial Decision Making Patient still has significant signs of disseminated shingles though it does appear many areas have already crusted and crusting is falling off. Patient appears to be on appropriate medication but, is only on gabapentin 300 twice a day. We discussed increasing to gabapentin 3 times a day. I also discussed the case with Dr. Cao given that the patient is already on narcotics, neuropathic pain medication and continues his antiviral therapy. Up-to-date recommended and evaluation for nerve block. We placed a referral to pain management on behalf of this patient for evaluation. Patient indicated he was not sure if that is something he would do as his pain is only off and on but, I encouraged him to use the referral should he decide he still needs assistance with pain as neuropathic pain from shingles can last months or even years. We discussed application of blue top Dermoplast in the acute setting if needed. Patient verbalizes understanding and agreement to the treatment plan. Differential Diagnosis Likely herpes zoster and cellulitis; Unlikely abscess of skin or subcutaneous tissue, viral exanthem, eczema, insect bites, impetigo or contact dermatitis No radiology studies performed this visit Discharge Plan Discharge Patient Disposition: Home Clinical Impression: Neuralgia, post-herpetic Condition: Stable Prescriptions: No Action MSM 1,000 mg capsule 1,000 mg PO BID sildenafil [Viagra] 50 mg tablet 50 mg PO DAILY PRN (Reason: Erectile Dysfunction) Rx Instructions: administer 30 minutes to 4 hours before activity cholecalciferol (vitamin D3) 10 mcg (400 unit) capsule 10 mcg PO DAILY tamsulosin 0.4 mg capsule 0.4 mg PO BID Qty: 180 3RF gabapentin 300 mg Capsule 300 mg PO BID ibuprofen 200 mg Tablet 200 mg PO Q6H PRN (Reason: Pain) Domeboro 952-1,347 mg Powder In Packet 2 packet TOPICAL DAILY glucosamine sulfate 1,000 mg Tablet 1,000 mg PO BID finasteride 5 mg tablet 5 mg PO QAM cyclobenzaprine 10 mg Tablet 5 mg PO TID PRN (Reason: Muscle Spasms) 15 Days Qty: 23 0RF acyclovir 800 mg tablet 800 mg PO 5XD 10 Days Qty: 50 0RF Rx Instructions: space evenly during waking hours doxycycline hyclate 100 mg tablet 100 mg PO BID 7 Days Qty: 14 0RF Discharge Orders: Discharge ED (Routine); Ordered 03/24/23 Ordered By: Bozena Aggarwal Referrals: Anish Lawson MD [Primary Care Provider] - Discharge Diet: Usual diet Discharge Activity: Increase activity as tolerated Patient Instructions: Shingles (ED), Opioid Safety, Pain Management Activity Restrictions/Additional Instructions: Continue taking the medication prescribed by your doctor. I do encourage you to increase your gabapentin to 300 mg 3 times a day. I also recommend purchasing [id number] blue top Dermoplast spray which contains a topical numbing agent. You can use this acutely when episodes of pain develop. I have also placed a referral to pain management on your behalf to discuss the possibility of needing nerve blocks given the significant coverage of shingles to your left upper back and left upper chest involving multiple dermatomes. Unfortunately, neuropathic pain after shingles can last months to years and would encourage you to speak with pain management in an effort to help you return to a normal baseline of function and daily living without interference of recurrent neuropathic pain. Coding Level of Care Code ED Office Services Assistant for Magdy Kiryb
--- NOTE | 2023-03-26 08:58 | PC.SOCIAL ---
Pain Referral Referral message sent to pain clinic at this time. Clinic to contact patient with appt date/time.
== END 2023-03-24 14:13 | disposition home or self-care (01) ==
PROVIDERS: Emergency Provider Physician Assistant; PCP Family Medicine
DX: B02.29 Other postherpetic nervous system involvement (principal); Z85.72 Personal history of non-Hodgkin lymphomas
CPT/HCPCS: 99282

== ENCOUNTER → 2023-04-05 15:08 | Outpatient (BNVA) | payer MEDICARE, SELFPAY | PROVIDERS: PCP Family Medicine; Visit Provider Dermatology | DX: B02.7 Disseminated zoster (principal); B02.29 Other postherpetic nervous system involvement | CPT/HCPCS: 99214 ==

== ENCOUNTER → 2023-06-06 10:21 | Outpatient (BNVA) | payer MEDICARE, SELFPAY | PROVIDERS: PCP Family Medicine; Visit Provider Dermatology | DX: D48.5 Neoplasm of uncertain behavior of skin (principal) | CPT/HCPCS: 11403; 11422; 12032; 12042 ==

== ENCOUNTER → 2023-06-18 11:08 | Outpatient (BNVA) | payer MEDICARE, SELFPAY | PROVIDERS: PCP Family Medicine; Visit Provider Dermatology | DX: Z48.02 Encounter for removal of sutures (principal) | CPT/HCPCS: 99212 ==

== ENCOUNTER → 2025-06-17 12:15 | Outpatient (BNVA) | payer MEDICARE, SELFPAY | PROVIDERS: PCP Family Medicine; Visit Provider Dermatology | DX: D22.4 Melanocytic nevi of scalp and neck (principal); L90.5 Scar conditions and fibrosis of skin; Z08 Encounter for follow-up examination after completed treatment for malignant neoplasm; Z85.828 Personal history of other malignant neoplasm of skin; D48.5 Neoplasm of uncertain behavior of skin | CPT/HCPCS: 11102; 17000; 99213 ==